=== PATIENT | female | born 1975 | race African-American/Black ===

== ENCOUNTER 2022-04-23 05:43 | Emergency (ER) | payer SELFPAY ==
[~2022-04-23] VITALS: Ht 162.6 cm; Wt 73.5 kg
[2022-04-23] MEDS ORDERED: KETOROLAC TROMETHAMINE 15 MG/ML VIAL ONE (06:23)
--- NOTE | 2022-04-23 06:23 | NUR ---
PT BIBS C/O LLQ ABD AND FLANL PAIN SINCE 1999 YESTERDAY THAT IS CONSTANT AND SHARP. HX OF KIDNEY STONES. PT AWAKE AND ALERT X4 AMBULATORY WITH STEADY GAIT. CHANGED INTO GOWN AND PLACED ON MONITOR AND V/S WNL.
--- NOTE | 2022-04-23 06:24 | NUR ---
WAIVER SIGNED AND PLACED IN PT CHART
[2022-04-23] MEDS ORDERED: KETOROLAC TROMETHAMINE INJ 30 MG/ML VIAL IV ONE (06:30)
[2022-04-23] MEDS ORDERED: IV NS 0.9% 1,000 ML BAG IV ONE (06:30)
--- NOTE | 2022-04-23 06:35 | NUR ---
URINE COLECTED AND SENT TO LAB
--- NOTE | 2022-04-23 06:43 | NUR ---
ADDENDUM: Intravenous End Time Documentation: Normal saline 1 liter (IV-WO) : start time: 0643 am; end time: 0743 am: IV site:PIV # 22 LH Port # 1
--- NOTE | 2022-04-23 06:44 | NUR ---
L HAND 22G PIV STARTED, BLOOD DRAWN AND PT MEDICATED ORDERED.
[2022-04-23 06:53] LABS: BASOPHILS # (AUTO) 0.1 K/uL (0.0-0.2); BASOPHILS % (AUTO) 0.8 % (0.0-2.0); EOSINOPHILS % (AUTO) 3.6 % (0.0-6.0); HEMATOCRIT 34 % (33-45); HEMOGLOBIN 10.9 g/dL (11.5-14.8); LYMPHOCYTES # (AUTO) 1.4 K/uL (0.8-4.8); LYMPHOCYTES % (AUTO) 20.3 % (20.0-44.0); MEAN CORPUSCULAR HGB CONC 32 g/dl (31.0-36.0); MEAN CORPUSCULAR VOLUME 77 fL (82-100); MONOCYTES # (AUTO) 0.4 K/uL (0.1-1.30); NEUTROPHILS # (AUTO) 4.9 K/uL (1.8-8.9); NEUTROPHILS % (AUTO) 69.3 % (43.0-81.0); PLATELET COUNT (AUTO) 279 K/uL (150-450); RED BLOOD CELL COUNT(AUTO) 4.45 MIL/uL (4.0-5.2)
[2022-04-23 06:59] LABS: BILIRUBIN,URINE NEGATIVE (NEGATIVE); COLOR,URINE YELLOW (YELLOW); LEUKOCYTE ESTERASE ,URINE NEGATIVE (NEGATIVE); NITRITE, URINE NEGATIVE (NEGATIVE); PROTEIN,URINE NEGATIVE (NEGATIVE); UGLUCOSE NEGATIVE (NEGATIVE); UROBILINOGEN,URINE 0.2 EU/dL (0.2)
[2022-04-23 07:03] LABS: ALBUMIN 3.2 g/dL (3.4-5.0); BILIRUBIN,DIRECT 0.1 mg/dL (0.0-0.2); BILIRUBIN,TOTAL 0.5 mg/dL (0.2-1.0); CALCIUM, SERUM 8.2 mg/dL (8.5-10.1); CREATININE 0.8 mg/dL (0.6-1.3); POTASSIUM 3.5 mmol/L (3.5-5.1); TOTAL PROTEIN, SERUM 6.9 g/dL (6.4-8.2)
[2022-04-23] MEDS ORDERED: HYDR-4209 PO (07:40)
--- NOTE | 2022-04-23 07:55 | NUR ---
IV removed. Catheter intact and site benign. Pressure and 4x4 applied to site. No bleeding noted.Patient discharged to home in stable condition. Written and verbal after care instructions given. Patient verbalizes understanding of instruction.
[2022-04-23 07:56] VITALS: BP 133/91
[2022-04-23 08:06] LABS: BACTERIA,URINE Rare /HPF (None Seen); RBC,URINE 0-2 /HPF (0-2); SQUAMOUS EPITHELIAL CELL,UR Few /HPF (None Seen); WBC,URINE 0-2 /HPF (0-3)
== END 2022-04-23 07:57 | disposition home or self-care (01) ==
LOC: ER 05:47
DX: N20.0 Calculus of kidney (principal); D25.9 Leiomyoma of uterus, unspecified; Z86.73 Personal history of transient ischemic attack (TIA), and cerebral infarction without residual deficits; I10 Essential (primary) hypertension; F17.200 Nicotine dependence, unspecified, uncomplicated
CPT/HCPCS: 99284; 74176; 96374; 96361; 85025; 80048; 83690; 80076; 81001; 36415; J7030; J1885